=== PATIENT | female | born 1990 | race Caucasian/White ===

== ENCOUNTER 2018-12-12 22:46 | Emergency (ER) | payer BC ==
[~2018-12-12] VITALS: Ht 167.6 cm; Wt 60.7 kg
[~2018-12-12 22:46] MED LIST: CEPH-443 PO
[2018-12-12 22:50] VITALS: Ht 167.6 cm; Wt 60.7 kg
[2018-12-12] MEDS ORDERED: SOD CHLORIDE 0.9% 1,000 ML IV STA (23:28)
[2018-12-12] MEDS ORDERED: ACETAMINOPHEN 325 MG TAB PO ONE (23:30)
[2018-12-13] MEDS ORDERED: ONDANSETRON 4 MG INJ IV STA (00:18)
--- NOTE | 2018-12-13 00:18 | ERD ---
ER Documentation Chief Complaint Chief Complaint N/V/D, pelvic pain X 1 day 16 wks HPI This is a 28-year-old female with no significant past medical history presenting to the emergency department complaining of intermittent nausea, vomiting, and diarrhea today. She is reportedly 16 weeks . Her last menstrual cycle was 08/17/2018. She is G6, LC 1. Patient reports pelvic pain starting today. Pain is rated 6/10 in severity. She denies any vaginal bleeding. She has had 3 episodes of nonbilious and nonbloody emesis today and 6 episodes of nonbloody diarrhea. She denies any fevers or chills at home. No other symptoms reported currently. ROS All systems reviewed and are negative except as per history of present illness. Medications Home Meds Active Scripts Cephalexin* (Keflex*) 500 Mg Capsule, 500 MG PO QID for 5 Days, CAP Prov:LASHAWN LOPES PA-C 12/13/18 Allergies Allergies: Coded Allergies: No Known Allergy (Unverified , 12/12/18) PMhx/Soc Medical and Surgical Hx: pt denies Medical Hx FmHx Family History: No diabetes Physical Exam Vitals Vital Signs Date Temp Pulse Resp B/P (MAP) Pulse Ox O2 O2 Flow FiO2 Time Delivery Rate 12/13/18 98.1 92 19 93/54 (67) 100 Room Air 01:58 12/12/18 100.5 87 18 106/61 100 22:50 (76) Physical Exam Const: No acute distress Head: Atraumatic Eyes: Normal Conjunctiva ENT: Normal External Ears, Nose and Mouth. Neck: Full range of motion. No meningismus. Resp: Clear to auscultation bilaterally Cardio: Regular rate and rhythm, no murmurs Abd: Soft, non tender, non distended. Normal bowel sounds. Subjective tenderness palpation of the suprapubic region bilaterally. No rebound tenderness or guarding. No McBurney's point tenderness. Skin: No petechiae or rashes Back: No midline or flank tenderness Ext: No cyanosis, or edema Neur: Awake and alert Psych: Normal Mood and Affect Result Diagram: 12/12/18 3368 12/12/18 2345 Results 24 hrs Laboratory Tests Test 12/12/18 23:45 White Blood Count 6.2 10^3/ul Red Blood Count 3.81 10^6/ul Hemoglobin 11.7 g/dl Hematocrit 35.3 % Mean Corpuscular Volume 92.7 fl Mean Corpuscular Hemoglobin 30.7 pg Mean Corpuscular Hemoglobin Concent 33.1 g/dl Red Cell Distribution Width 12.7 % Platelet Count 135 10^3/UL Mean Platelet Volume 11.5 fl Immature Granulocytes % 0.500 % Neutrophils % 88.5 % Lymphocytes % 6.0 % Monocytes % 3.9 % Eosinophils % 0.8 % Basophils % 0.3 % Nucleated Red Blood Cells % 0.0 /100WBC Immature Granulocytes # 0.030 10^3/ul Neutrophils # 5.5 10^3/ul Lymphocytes # 0.4 10^3/ul Monocytes # 0.2 10^3/ul Eosinophils # 0.1 10^3/ul Basophils # 0.0 10^3/ul Nucleated Red Blood Cells # 0.0 10^3/ul Urine Color YELLOW Urine Clarity CLOUDY Urine pH 5.0 Urine Specific [place] 1.029 Urine Ketones 2+ mg/dL Urine Nitrite NEGATIVE mg/dL Urine Bilirubin NEGATIVE mg/dL Urine Urobilinogen NEGATIVE mg/dL Urine Leukocyte Esterase 1+ Ori/ul Urine Microscopic RBC 1 /HPF Urine Microscopic WBC 4 /HPF Urine Squamous Epithelial Cells MODERATE /HPF Urine Mucus MODERATE /HPF Urine Hemoglobin NEGATIVE mg/dL Urine Glucose NEGATIVE mg/dL Urine Total Protein NEGATIVE mg/dl Sodium Level 137 mmol/L Potassium Level 4.1 mmol/L Chloride Level 107 mmol/L Carbon Dioxide Level 23 mmol/L Anion Gap 7 Blood Urea Nitrogen 11 mg/dl Creatinine 0.36 mg/dl Est Glomerular Filtrat Rate mL/min > 60 mL/min Glucose Level 95 mg/dl Calcium Level 8.4 mg/dl Total Bilirubin 0.6 mg/dl Direct Bilirubin 0.00 mg/dl Indirect Bilirubin 0.6 mg/dl Aspartate Amino Transf (AST/SGOT) 23 IU/L Alanine Aminotransferase (ALT/SGPT) 19 IU/L Alkaline Phosphatase 57 IU/L Total Protein 6.8 g/dl Albumin 3.7 g/dl Globulin 3.10 g/dl Albumin/Globulin Ratio 1.19 Current Medications Medications Dose Sig/Pedro Start Time Status Last (Trade) Ordered Route PRN Stop Time Admin Dose Reason Admin Sodium 1,000 ml @ Q1H STAT 12/12/18 DC 12/12/18 Chloride 1,000 mls/hr IV 23:28 23:56 12/13/18 00:27 650 mg ONCE ONCE 12/12/18 DC 12/12/18 Acetaminophen PO 23:30 23:54 (Tylenol 12/12/18 23:31 Tab) Ondansetron 4 mg ONCE STAT 12/13/18 DC HCl (Zofran IV 00:18 Inj) 12/13/18 00:19 [place] [id number] Radiology Main Line: [phone] DIAGNOSTIC IMAGING REPORT Patient: TISHA GARVEY : 1990 Age: 28 Sex: F MR #: [id number] DOS: 12/12/18 0000 Ordering MD: LASHAWN LOPES PA-C Location: [facility] Room/Bed: PROCEDURE: US OB CLINICAL INDICATION: . Pelvic pain TECHNIQUE: Multiple transabdominal sonographic images of the pelvis and gravid uterus were obtained. The images were reviewed on a PACS workstation. COMPARISON: No prior studies are available for comparison. FINDINGS: Cervix: Not delineated. Gestation: Single live intrauterine gestation. Cardiac activity: 143 beats per minute. Presentation: Variable Placenta: Location: Anterior. Appearance: No abruption. Amniotic Fluid: Maximum vertical pocket equals 2.72 cm. Measurements: BPD = 3.88 cm, 17 weeks 6 days HC = 14.29 cm, 17 weeks 4 days AC = 11.45 cm, 17 weeks 2 days FL = 2.6 cm, 17 weeks 6 days Gestational Age: AUA estimated gestational age: 17 weeks 5 days LMP estimated gestational age: 17 weeks 4 days AUA estimated date of delivery: 05/17/2019 The EFW = 199.87 g, 43.5 %ile based on LMP age. IMPRESSION: 1. Single live intrauterine gestation of 17 weeks 5 days by ultrasound criteria. 2. Estimated date of delivery of 05/17/2019. 3. No abnormality identified. RPTAT: HJES .Henrry Orta MD, Date Time Electronically viewed and signed by .Henrry Orta MD, on 12/13/2018 01:04 .S/ CC: LASHAWN LOPES PA-C [id number] Procedures/MDM This is a pleasant 28-year-old female presenting to the emergency department complaining of intermittent pelvic pain and nausea, vomiting, and diarrhea. Patient was immediately placed into a stretcher and IV line was established. She was administered IV fluids. She is improved on reevaluation.CBC showed no evidence of severe leukocytosis or anemia. CMP was within normal limits. Urinalysis showed 1+ leukocyte esterase concerning for mild urinary tract infection. Obstetrics ultrasound revealed single live intrauterine gestation of 17 weeks and 5 days. There was heart tones. Patient was stable for discharge with a prescription for Keflex. No evidence to suggest ectopic , tubo-ovarian abscess, ovarian torsion, or other emergencies. Patient will be discharged home and advised to follow-up with her [employer] physician within the next 24 to 48 hours and return here immediately for any new, worsening, or concerning symptoms. Patient understands and agrees with the plan . Departure Diagnosis: Primary Impression: UTI (urinary tract infection) Condition: Fair LASHAWN LOPES PA-C Dec 13, 2018 00:18
[2018-12-13 01:58] VITALS: BP 93/54; PULSE 92; RESP 19
== END 2018-12-13 02:30 | disposition home or self-care (01) ==
LOC: FTE 22:46
DX: O26.892 Other specified pregnancy related conditions, second trimester (principal); O23.42 Unspecified infection of urinary tract in pregnancy, second trimester; R10.2 Pelvic and perineal pain; Z3A.17 17 weeks gestation of pregnancy
CPT/HCPCS: 36415; 76805; 80053; 81001; 85025; 99285; J7030; Z7610; J2405